=== PATIENT | male | born 2000 | race Caucasian/White ===

== ENCOUNTER 2021-02-22 03:51 | Emergency (ER) | payer OTHER ==
[2021-02-22 05:30] LABS: HEMOGLOBIN 14.4 gm/dl (14.0-17.5); RED BLOOD COUNT 4.64 M/UL (4.20-5.50); WHITE BLOOD COUNT 9.7 K/UL (4.5-11.0)
[2021-02-22 05:48] LABS: BUN/CREATININE RATIO 8 (0-10)
== END 2021-02-22 07:15 | disposition home or self-care (01) ==
LOC: ER1 03:51
PROVIDERS: Physician Assistant
DX: J02.9 Acute pharyngitis, unspecified (principal); Z88.1 Allergy status to other antibiotic agents; Z88.0 Allergy status to penicillin; Z20.822 Contact with and (suspected) exposure to COVID-19
CPT/HCPCS: 71045; 80053; 83605; 85025; 86403; 87040; 87081; 87880; 99283; U0002